=== PATIENT | male | born 1950 | race Hispanic/Latino ===

== ENCOUNTER → 2018-02-26 | Outpatient (CLI) | payer MEDICARE | END | disposition home or self-care (01) | LOC: SHCH 10:46 | PROVIDERS: ATTEND Internal Medicine Cardiovascular Disease | DX: I50.42 Chronic combined systolic (congestive) and diastolic (congestive) heart failure (principal) | CPT/HCPCS: 93306 ==

== ENCOUNTER → 2020-08-13 | Outpatient (CLI) | payer MEDICARE | END | disposition home or self-care (01) | LOC: SHCH 09:06 | PROVIDERS: ATTEND Internal Medicine Cardiovascular Disease | DX: I50.22 Chronic systolic (congestive) heart failure (principal) | CPT/HCPCS: 93306 ==

== ENCOUNTER → 2022-08-21 | Outpatient (CLI) | payer MEDICARE ==
[2022-08-21 12:29] LABS: POTASSIUM 4.1 mmol/L (3.5-5.1)
== END | disposition home or self-care (01) ==
LOC: LAB 08:59
PROVIDERS: ATTEND Internal Medicine Cardiovascular Disease
DX: I50.22 Chronic systolic (congestive) heart failure (principal)
CPT/HCPCS: 36415; 80048; 83880

== ENCOUNTER → 2022-10-22 | Outpatient (CLI) | payer MEDICARE ==
[2022-10-22 12:46] LABS: CREATININE 1.2 mg/dL (0.5-1.5); POTASSIUM 4.1 mmol/L (3.5-5.1)
== END | disposition home or self-care (01) ==
LOC: LAB 08:32
PROVIDERS: ATTEND Internal Medicine Cardiovascular Disease
DX: I50.22 Chronic systolic (congestive) heart failure (principal)
CPT/HCPCS: 36415; 80048; 83880

== ENCOUNTER → 2022-12-08 | Outpatient (CLI) | payer MEDICARE ==
[2022-12-08 13:13] LABS: CREATININE 1.4 mg/dL (0.5-1.5)
== END | disposition home or self-care (01) ==
LOC: LAB 08:08
PROVIDERS: ATTEND Internal Medicine Cardiovascular Disease
DX: I11.0 Hypertensive heart disease with heart failure (principal); I25.2 Old myocardial infarction; I50.42 Chronic combined systolic (congestive) and diastolic (congestive) heart failure
CPT/HCPCS: 36415; 80048; 83880

== ENCOUNTER → 2022-12-26 | Outpatient (CLI) | payer MEDICARE ==
[~2022-12-26] VITALS: Ht 168.9 cm; Wt 94.1 kg
[~2022-12-26] MED LIST: APIX5TAB PO; ATOR40TA71 PO; CEFAZOLIN SODIUM 2 GM VIAL IVPB SCH; EMPA10TA PO; FURO20TA4 PO; GLIM4TAB36 PO; METF-444 PO; METO-391 PO; SACU1TAB PO; SITA100T12 PO; SPIR25TA PO
[2022-12-26 10:04] LABS: BASOPHILS % (AUTO) 0.4 % (0.0-5.0); EOSINOPHILS % (AUTO) 1.1 % (0.0-8.0); HEMATOCRIT 42.8 % (42-54); LYMPHOCYTES % (AUTO) 18.8 % (21.0-51.0); MEAN CORPUSCULAR HEMOGLOBIN 32.2 pg (27.0-33.0); MEAN CORPUSCULAR HGB CONC 32.7 g/dL (32.0-36.0); MEAN CORPUSCULAR VOLUME 98.4 fL (79-99); MONOCYTES % (AUTO) 6.9 % (3.0-13.0); NEUTROPHILS % (AUTO) 72.3 % (40.0-77.0); PLATELET COUNT (AUTO) 125 K/uL (130-400); RED BLOOD CELL COUNT(AUTO) 4.35 MIL/uL (4.50-6.20); RED CELL DISTRIBUTION WIDTH 13.6 % (11.0-15.5); WHITE BLOOD COUNT (AUTO) 11.5 K/uL (4.8-10.8)
[2022-12-26 10:11] LABS: CREATININE 1.5 mg/dL (0.5-1.5); POTASSIUM 4.5 mmol/L (3.5-5.1)
[2022-12-26 10:12] LABS: INR 1.17 (0.85-1.15); PROTHROMBIN TIME 12.6 SEC (9.6-11.6)
[2022-12-26 10:13] LABS: PARTIAL THROMBOPLASTIN TIME 29.7 SEC (26.3-35.5)
[2022-12-29 08:55] VITALS: BP 97/64
== END | disposition home or self-care (01) ==
LOC: EDSTATUS 09:00 → DAH 10:00
PROVIDERS: ATTEND Internal Medicine Cardiovascular Disease
DX: Z01.810 Encounter for preprocedural cardiovascular examination (principal); I25.5 Ischemic cardiomyopathy; I50.22 Chronic systolic (congestive) heart failure; I44.7 Left bundle-branch block, unspecified; I48.91 Unspecified atrial fibrillation; Z79.01 Long term (current) use of anticoagulants; Z79.899 Other long term (current) drug therapy
CPT/HCPCS: 36415; 80048; 85025; 85610; 85730; 93005

== ENCOUNTER 2023-01-13 08:16 | Day surgery (SDC) | payer MEDICARE ==
[2023-01-09 13:56] LABS: BASOPHILS % (AUTO) 0.3 % (0.0-5.0); EOSINOPHILS % (AUTO) 1.2 % (0.0-8.0); HEMATOCRIT 42.7 % (42-54); LYMPHOCYTES % (AUTO) 19.3 % (21.0-51.0); MEAN CORPUSCULAR HEMOGLOBIN 31.9 pg (27.0-33.0); MEAN CORPUSCULAR HGB CONC 32.3 g/dL (32.0-36.0); MEAN CORPUSCULAR VOLUME 98.8 fL (79-99); MONOCYTES % (AUTO) 8.8 % (3.0-13.0); PLATELET COUNT (AUTO) 167 K/uL (130-400); RED BLOOD CELL COUNT(AUTO) 4.32 MIL/uL (4.50-6.20); RED CELL DISTRIBUTION WIDTH 13.8 % (11.0-15.5); WHITE BLOOD COUNT (AUTO) 10.5 K/uL (4.8-10.8)
[2023-01-09 14:12] LABS: CREATININE 1.4 mg/dL (0.5-1.5); INR 1.1 (0.85-1.15); POTASSIUM 4.7 mmol/L (3.5-5.1); PROTHROMBIN TIME 11.9 SEC (9.6-11.6)
[2023-01-09 14:13] LABS: PARTIAL THROMBOPLASTIN TIME 28.1 SEC (26.3-35.5)
[2023-01-09 15:38] VITALS: BP 97/60
[2023-01-13] VITALS (8 sets, daily range): BP systolic 95–107; BP diastolic 58–71
[~2023-01-13] VITALS: Ht 162.6 cm; Wt 94.9 kg
[~2023-01-13 08:16] MED LIST changes: +0.9% NACL 500ML IV.SOLN 500 ML IV SCH; +ASPI1TAB PO
[2023-01-13] MEDS ORDERED: MIDAZOLAM HCL 1 MG/ML 2ML VIAL ONE ×2 (14:16→15:03)
[2023-01-13] MEDS ORDERED: IODIXANOL 320 MG/ML 100 ML VIAL ONE (14:16)
[2023-01-13] MEDS ORDERED: MEPERIDINE-PF 25 MG/ML SYG ONE ×2 (14:16→15:03)
[2023-01-13] MEDS ORDERED: LIDOCAINE HCL 1% MDV 50ML VIAL ONE (14:17)
[2023-01-13] MEDS ORDERED: BUPIVACAINE/PF 0.25% 10ML VIAL IJ ONE (14:17)
[2023-01-13] MEDS ORDERED: CEFAZOLIN SODIUM 1 GM VIAL ONE (14:54)
[2023-01-13] MEDS ORDERED: ACETAMINOPHEN 500 MG TABLET PO PRN (16:30)
[2023-01-13] MEDS ORDERED: ACETAMINOPHEN WITH CODEINE 1 TAB TAB PO PRN (16:30)
[2023-01-13] MEDS ORDERED: TRAM50TA4 PO (16:32)
== END 2023-01-13 19:27 | disposition home or self-care (01) ==
LOC: DAH 08:16
PROVIDERS: ATTEND Internal Medicine Cardiovascular Disease
DX: I25.5 Ischemic cardiomyopathy (principal); I11.0 Hypertensive heart disease with heart failure; I50.42 Chronic combined systolic (congestive) and diastolic (congestive) heart failure; I25.10 Atherosclerotic heart disease of native coronary artery without angina pectoris; I48.91 Unspecified atrial fibrillation; G47.33 Obstructive sleep apnea (adult) (pediatric); K21.9 Gastro-esophageal reflux disease without esophagitis; I25.2 Old myocardial infarction; Z98.890 Other specified postprocedural states; Z82.49 Family history of ischemic heart disease and other diseases of the circulatory system; Z83.3 Family history of diabetes mellitus; Z95.1 Presence of aortocoronary bypass graft; Z79.899 Other long term (current) drug therapy; Z79.01 Long term (current) use of anticoagulants
CPT/HCPCS: 80048; 85025; 85610; 85730; 36415; 93005; 33225; 33249; 82948 ×4; 71045; A4223 ×3; C1769; C1882; C1900; C1896; C1895; J0690; J2250 ×2; J3490 ×2; J2175 ×2; Q9967; A4215; A4222; A4221; A4663; A4216; A4606; 99156; 99157

== ENCOUNTER 2023-01-21 06:06 | Observation (INO) | payer MEDICARE ==
[2023-01-20 15:11] VITALS: BP 96/51
[2023-01-20 15:27] LABS: BASOPHILS % (AUTO) 0.4 % (0.0-5.0); EOSINOPHILS % (AUTO) 1.3 % (0.0-8.0); HEMATOCRIT 37.9 % (42-54); LYMPHOCYTES % (AUTO) 19.8 % (21.0-51.0); MEAN CORPUSCULAR HEMOGLOBIN 32.3 pg (27.0-33.0); MEAN CORPUSCULAR VOLUME 97.9 fL (79-99); PLATELET COUNT (AUTO) 149 K/uL (130-400); RED BLOOD CELL COUNT(AUTO) 3.87 MIL/uL (4.50-6.20); RED CELL DISTRIBUTION WIDTH 14.3 % (11.0-15.5); WHITE BLOOD COUNT (AUTO) 11.1 K/uL (4.8-10.8)
[2023-01-20 15:34] LABS: CREATININE 1.6 mg/dL (0.5-1.5); POTASSIUM 4.9 mmol/L (3.5-5.1)
[2023-01-21] VITALS (12 sets, daily range): BP systolic 91–124; BP diastolic 55–74
[~2023-01-21] VITALS: Ht 162.6 cm; Wt 94.0 kg
[~2023-01-21 06:06] MED LIST changes: -0.9% NACL 500ML IV.SOLN 500 ML IV SCH; -CEFAZOLIN SODIUM 2 GM VIAL IVPB SCH
[2023-01-21] MEDS ORDERED: MIDAZOLAM HCL 1 MG/ML 2ML VIAL ONE (06:24)
[2023-01-21] MEDS ORDERED: FENTANYL CITRATE PF 50 MCG/1 ML 2ML VIAL ONE (06:25)
[2023-01-21] MEDS ORDERED: LIDOCAINE HCL 2% VISCOUS 15 ML UDCUP ONE (06:34)
[2023-01-21] MEDS ORDERED: AMIODARONE 150MG VIAL 150 MG in DEXTROSE 5%-WATER 100 ML IV SCH (10:00)
[2023-01-21] MEDS ORDERED: AMIODARONE 540 MG/D5W 300ML (0.5MG/MIN) IV SCH ×2 (10:00)
[2023-01-21] MEDS ORDERED: AMIODARONE 360MG/200ML D5W(1MG/MIN) IV SCH ×2 (10:00)
[2023-01-21] MEDS ORDERED: ACETAMINOPHEN 500 MG TABLET PO PRN (11:30)
[2023-01-21] MEDS ORDERED: FORMULA PO PRN (11:30)
[2023-01-21] MEDS ORDERED: GLUCAGON 1MG KIT 1 MG ML IM PRN (18:00)
[2023-01-21] MEDS ORDERED: DEXTROSE 50%-WATER 50 ML DISP.SYRIN IV PRN (18:00)
[2023-01-21] MEDS: METOPROLOL SUCCINATE 50 MG TAB.SR.24H PO SCH (20:43)
[2023-01-21] MEDS: SACUBITRIL/VALSARTAN 1 EACH TABLET PO SCH (20:44)
[2023-01-21] MEDS: APIXABAN 5 MG TABLET PO SCH (20:44)
[2023-01-21] MEDS: INSULIN HUMULIN R 100 UNIT/ML 3ML SQ SCH (20:44)
[2023-01-21] MEDS: GLIMEPIRIDE 2 MG TABLET PO SCH (20:44)
[2023-01-21] MEDS ORDERED: ATORVASTATIN 40 MG TABLET PO SCH (21:00)
[2023-01-22 03:56] VITALS: BP 104/69
[2023-01-22 03:57] LABS: BASOPHILS % (AUTO) 0.3 % (0.0-5.0); EOSINOPHILS % (AUTO) 0.9 % (0.0-8.0); HEMATOCRIT 39.4 % (42-54); LYMPHOCYTES % (AUTO) 23.3 % (21.0-51.0); MEAN CORPUSCULAR HEMOGLOBIN 32.4 pg (27.0-33.0); MEAN CORPUSCULAR HGB CONC 32.2 g/dL (32.0-36.0); MEAN CORPUSCULAR VOLUME 100.5 fL (79-99); NEUTROPHILS % (AUTO) 64.7 % (40.0-77.0); PLATELET COUNT (AUTO) 141 K/uL (130-400); RED BLOOD CELL COUNT(AUTO) 3.92 MIL/uL (4.50-6.20); RED CELL DISTRIBUTION WIDTH 14.4 % (11.0-15.5); WHITE BLOOD COUNT (AUTO) 12.8 K/uL (4.8-10.8)
[2023-01-22 04:15] LABS: CREATININE 1.6 mg/dL (0.5-1.5); POTASSIUM 4.9 mmol/L (3.5-5.1)
[2023-01-22] MEDS: INSULIN HUMULIN R 100 UNIT/ML 3ML SQ SCH ×2 (05:17→11:13)
[2023-01-22] MEDS: METOPROLOL SUCCINATE 50 MG TAB.SR.24H PO SCH (05:24)
[2023-01-22 06:47] VITALS: BP 114/72
[2023-01-22] MEDS: METFORMIN HCL 500 MG TABLET PO SCH ×2 (08:00→09:26)
[2023-01-22] MEDS ORDERED: LIDOCAINE PF 100MG/5ML (2%) SYRINGE 5ML ONE (08:10)
[2023-01-22] MEDS ORDERED: NOREPINEPHRINE BITARTRATE 1 MG/1 ML ML IV ONE (08:10)
[2023-01-22] MEDS ORDERED: PROPOFOL 10 MG/ML 20ML VIAL IV ONE (08:11)
[2023-01-22] MEDS: GLIMEPIRIDE 2 MG TABLET PO SCH (08:32)
[2023-01-22] MEDS: EMPAGLIFLOZIN 10MG TABLET PO SCH ×2 (08:32→09:00)
[2023-01-22] MEDS: LINAGLIPTIN 5 MG TABLET PO SCH ×2 (08:32→09:00)
[2023-01-22] MEDS ORDERED: FUROSEMIDE 20 MG TABLET PO SCH (09:00)
[2023-01-22] MEDS ORDERED: SPIRONOLACTONE 25 MG TAB PO SCH (09:00)
[2023-01-22] MEDS ORDERED: AMIO200T68 PO (09:13)
[2023-01-22] MEDS: SACUBITRIL/VALSARTAN 1 EACH TABLET PO SCH (09:27)
[2023-01-22] MEDS: APIXABAN 5 MG TABLET PO SCH (09:27)
[2023-01-22] MEDS ORDERED: AMIODARONE 200 MG TABLET PO SCH (09:30)
[2023-01-22 10:50] VITALS: BP 94/67
[2023-01-22 13:00] VITALS: BP 102/70
== END 2023-01-22 13:15 | disposition home or self-care (01) ==
LOC: DAH 06:06 → INTOOBSV 06:07 → DAHIP 06:07 → DAH 06:07 → 2AH 11:54 → EDSTATUS 13:00
PROVIDERS: ADMIT Internal Medicine Cardiovascular Disease; ATTEND Internal Medicine Cardiovascular Disease
DX: I48.19 Other persistent atrial fibrillation (principal); I10 Essential (primary) hypertension; I25.10 Atherosclerotic heart disease of native coronary artery without angina pectoris; G47.33 Obstructive sleep apnea (adult) (pediatric); G43.909 Migraine, unspecified, not intractable, without status migrainosus; E11.9 Type 2 diabetes mellitus without complications; Z79.899 Other long term (current) drug therapy
CPT/HCPCS: 80048 ×2; 85025 ×2; 36415 ×2; 93005; 96365; 96366 ×2; 82948 ×6; 93312; 92960; G0378 ×25; J3010; J2250; J7060 ×3; J0282 ×3; A4615; A4215; A4223 ×3; A4222; A4221; A4663; A4216; A4606; J3490; J2001; J2704; 96374

== ENCOUNTER → 2023-07-21 | Outpatient (CLI) | payer MEDICARE ==
[~2023-07-21] MED LIST changes: +AMIO200T68 PO
[2023-07-21 11:59] LABS: BASOPHILS # (AUTO) 0.07 K/uL (0.00-0.20); BASOPHILS % (AUTO) 0.6 % (0.0-5.0); EOSINOPHILS # (AUTO) 0.18 K/uL (0.00-0.70); EOSINOPHILS % (AUTO) 1.5 % (0.0-8.0); HEMATOCRIT 45.1 % (42-54); IMMATURE GRANULOCYTE ABSOLUTE 0.05 K/uL (0-1); LYMPHOCYTES # (AUTO) 2.7 K/uL (1.0-4.8); LYMPHOCYTES % (AUTO) 22.9 % (21.0-51.0); MEAN CORPUSCULAR HEMOGLOBIN 32.7 pg (27.0-33.0); MEAN CORPUSCULAR HGB CONC 31.7 g/dL (32.0-36.0); MEAN CORPUSCULAR VOLUME 103.2 fL (79-99); MONOCYTES % (AUTO) 8.7 % (3.0-13.0); NEUTROPHILS # (AUTO) 7.7 K/uL (1.8-7.7); NEUTROPHILS % (AUTO) 65.9 % (40.0-77.0); PLATELET COUNT (AUTO) 158 K/uL (130-400); RED BLOOD CELL COUNT(AUTO) 4.37 MIL/uL (4.50-6.20); WHITE BLOOD COUNT (AUTO) 11.7 K/uL (4.8-10.8)
[2023-07-21 12:25] LABS: ALBUMIN 3.8 g/dL (3.5-5.0); BILIRUBIN,TOTAL 0.6 mg/dL (0.2-1.0); CREATININE 1.7 mg/dL (0.5-1.5); POTASSIUM 5.1 mmol/L (3.5-5.1); TOTAL PROTEIN, SERUM 7.9 g/dL (6.0-8.3)
== END | disposition home or self-care (01) ==
LOC: LAB 08:34
PROVIDERS: ATTEND Internal Medicine Cardiovascular Disease
DX: I50.22 Chronic systolic (congestive) heart failure (principal); I48.91 Unspecified atrial fibrillation
CPT/HCPCS: 36415; 80053; 80061; 83880; 85025

== ENCOUNTER → 2023-10-02 | Outpatient (CLI) | payer MEDICARE ==
[~2023-10-02] MED LIST changes: +ASPI-1005 PO; -ASPI1TAB PO; -FURO20TA4 PO; +FURO40TA7 PO; +MECL-226 PO; -METO-391 PO; +METO100T14 PO; +TYLENOL ARTHRITIS PO
[2023-10-02 13:01] LABS: CREATININE 1.7 mg/dL (0.5-1.5)
== END | disposition home or self-care (01) ==
LOC: LAB 08:25
PROVIDERS: ATTEND Internal Medicine Cardiovascular Disease
DX: I48.0 Paroxysmal atrial fibrillation (principal); I50.22 Chronic systolic (congestive) heart failure
CPT/HCPCS: 36415; 80048; 83880

== ENCOUNTER → 2023-10-22 | Outpatient (CLI) | payer MEDICARE ==
[2023-10-22 12:56] LABS: CREATININE 1.9 mg/dL (0.5-1.5); POTASSIUM 4.2 mmol/L (3.5-5.1)
== END | disposition home or self-care (01) ==
LOC: LAB 08:27
PROVIDERS: ATTEND Internal Medicine Cardiovascular Disease
DX: I50.42 Chronic combined systolic (congestive) and diastolic (congestive) heart failure (principal); I48.0 Paroxysmal atrial fibrillation
CPT/HCPCS: 36415; 80048; 83880

== ENCOUNTER 2024-01-14 20:05 | Emergency (ER) | payer MEDICARE ==
[~2024-01-14] VITALS: Ht 162.6 cm; Wt 98.9 kg
[2024-01-15 02:29] LABS: BASOPHILS # (AUTO) 0.04 K/uL (0.00-0.20); BASOPHILS % (AUTO) 0.3 % (0.0-5.0); EOSINOPHILS # (AUTO) 0.05 K/uL (0.00-0.70); EOSINOPHILS % (AUTO) 0.3 % (0.0-8.0); HEMATOCRIT 37.8 % (42-54); IMMATURE GRANULOCYTE ABSOLUTE 0.07 K/uL (0-1); LYMPHOCYTES # (AUTO) 2.3 K/uL (1.0-4.8); LYMPHOCYTES % (AUTO) 14.7 % (21.0-51.0); MEAN CORPUSCULAR HEMOGLOBIN 33.7 pg (27.0-33.0); MEAN CORPUSCULAR HGB CONC 34.1 g/dL (32.0-36.0); MEAN CORPUSCULAR VOLUME 98.7 fL (79-99); MONOCYTES # (AUTO) 1.5 K/uL (0.1-1.0); MONOCYTES % (AUTO) 9.4 % (3.0-13.0); NEUTROPHILS # (AUTO) 11.9 K/uL (1.8-7.7); NEUTROPHILS % (AUTO) 74.9 % (40.0-77.0); PLATELET COUNT (AUTO) 168 K/uL (130-400); RED BLOOD CELL COUNT(AUTO) 3.83 MIL/uL (4.50-6.20); RED CELL DISTRIBUTION WIDTH 14.5 % (11.0-15.5); WHITE BLOOD COUNT (AUTO) 15.9 K/uL (4.8-10.8)
[2024-01-15 02:41] LABS: POTASSIUM 4.1 mmol/L (3.5-5.1)
[2024-01-15 02:47] LABS: ALBUMIN 3.7 g/dL (3.5-5.0); BILIRUBIN,TOTAL 0.8 mg/dL (0.2-1.0); TOTAL PROTEIN, SERUM 7.3 g/dL (6.0-8.3)
[2024-01-15 02:51] LABS: B-TYPE NATRIURETIC PEPTIDE 1160 pg/mL (0-100)
[2024-01-15 03:21] LABS: ADD UA MICROSCOPIC NO; APPEARANCE,URINE CLEAR (CLEAR); BILIRUBIN,URINE NEGATIVE (NEGATIVE); COLOR,URINE COLORLESS (YELLOW); GLUCOSE, URINE (UA) NEGATIVE (NEGATIVE); KETONES,URINE NEGATIVE (NEGATIVE); LEUKOCYTE ESTERASE ,URINE NEGATIVE Leu/uL (NEGATIVE); NITRATE,URINE NEGATIVE (NEGATIVE); OCCULT BLOOD,URINE NEGATIVE (NEGATIVE); PROTEIN,URINE NEGATIVE (NEGATIVE); UROBILINOGEN,URINE 0.2 mg/dL (0.2-1.0)
[2024-01-15] MEDS ORDERED: FUROSEMIDE 100MG VIAL IVP ONE (04:00)
[2024-01-15 04:06] VITALS: BP 102/64; PULSE 84; RESP 17; O2SAT 98
== END 2024-01-15 04:13 | disposition home or self-care (01) ==
LOC: EDH 20:05
DX: I11.0 Hypertensive heart disease with heart failure (principal); I50.9 Heart failure, unspecified; E11.9 Type 2 diabetes mellitus without complications; E78.00 Pure hypercholesterolemia, unspecified; Z79.01 Long term (current) use of anticoagulants; Z79.82 Long term (current) use of aspirin; Z79.84 Long term (current) use of oral hypoglycemic drugs; Z79.899 Other long term (current) drug therapy; Z95.810 Presence of automatic (implantable) cardiac defibrillator
CPT/HCPCS: 36415; 71045; 80053; 81003; 82550; 83880; 84484; 85025; 93005

== ENCOUNTER → 2024-02-10 | Outpatient (CLI) | payer MEDICARE ==
[2024-02-10 13:19] LABS: CREATININE 2.1 mg/dL (0.5-1.3); MAGNESIUM 2.2 mg/dL (1.80-2.40); POTASSIUM 4.8 mmol/L (3.5-5.1)
== END | disposition home or self-care (01) ==
LOC: LAB 08:27
PROVIDERS: ATTEND Internal Medicine Cardiovascular Disease
DX: I50.41 Acute combined systolic (congestive) and diastolic (congestive) heart failure (principal); R06.00 Dyspnea, unspecified
CPT/HCPCS: 36415; 80048; 83735; 83880

== ENCOUNTER 2024-05-02 11:27 | Day surgery (SDC) | payer MEDICARE ==
[2024-04-28 12:28] LABS: BASOPHILS # (AUTO) 0.05 K/uL (0.00-0.20); BASOPHILS % (AUTO) 0.5 % (0.0-5.0); EOSINOPHILS # (AUTO) 0.08 K/uL (0.00-0.70); EOSINOPHILS % (AUTO) 0.7 % (0.0-8.0); HEMATOCRIT 43.6 % (42-54); LYMPHOCYTES % (AUTO) 18.8 % (21.0-51.0); MEAN CORPUSCULAR HEMOGLOBIN 33.9 pg (27.0-33.0); MEAN CORPUSCULAR VOLUME 102.6 fL (79-99); MONOCYTES # (AUTO) 0.8 K/uL (0.1-1.0); MONOCYTES % (AUTO) 7.7 % (3.0-13.0); NEUTROPHILS # (AUTO) 7.8 K/uL (1.8-7.7); NEUTROPHILS % (AUTO) 71.4 % (40.0-77.0); PLATELET COUNT (AUTO) 164 K/uL (130-400); RED BLOOD CELL COUNT(AUTO) 4.25 MIL/uL (4.50-6.20); RED CELL DISTRIBUTION WIDTH 13.8 % (11.0-15.5); WHITE BLOOD COUNT (AUTO) 10.9 K/uL (4.8-10.8)
[2024-04-28 12:40] LABS: INR 1.03 (0.85-1.15); PROTHROMBIN TIME 12.1 SEC (9.6-11.6)
[2024-04-28 12:41] LABS: PARTIAL THROMBOPLASTIN TIME 29.9 SEC (26.3-35.5)
[2024-04-28 12:52] LABS: B-TYPE NATRIURETIC PEPTIDE 1310 pg/mL (0-100)
[2024-04-28 12:58] LABS: CREATININE 2.2 mg/dL (0.5-1.3); POTASSIUM 4.6 mmol/L (3.5-5.1)
[2024-04-28 13:28] VITALS: BP 98/59; PULSE 79; RESP 18
[2024-04-28 13:36] LABS: APPEARANCE,URINE CLEAR (CLEAR); BILIRUBIN,URINE NEGATIVE (NEGATIVE); COLOR,URINE LIGHT-YELLOW (YELLOW); GLUCOSE, URINE (UA) 300 mg/dL (NEGATIVE); KETONES,URINE NEGATIVE (NEGATIVE); LEUKOCYTE ESTERASE ,URINE NEGATIVE Leu/uL (NEGATIVE); NITRATE,URINE NEGATIVE (NEGATIVE); OCCULT BLOOD,URINE NEGATIVE (NEGATIVE); PROTEIN,URINE NEGATIVE (NEGATIVE); UROBILINOGEN,URINE 0.2 mg/dL (0.2-1.0)
[2024-04-28 13:44] LABS: ADD UA MICROSCOPIC YES
[2024-04-28 13:48] LABS: HYALINE CASTS, URINE 26-50 /LPF (0-1 /LPF); MUCUS,URINE RARE LPF (None Seen); OTHER CASTS, URINE 2 /LPF (None Seen); RBC,URINE 0-1 /HPF (0-1); SQUAMOUS EPITHELIAL CELL,UR RARE /HPF (0-2)
[~2024-05-02] VITALS: Ht 162.6 cm; Wt 92.9 kg
[2024-05-02] VITALS (7 sets, daily range): BP systolic 98–122; BP diastolic 50–73; PULSE 67–91; RESP 13–20
[~2024-05-02 11:27] MED LIST changes: -AMIO200T68 PO; -ASPI-1005 PO; +DAPA10TA PO; -EMPA10TA PO; -FURO40TA7 PO; -MECL-226 PO; -METF-444 PO; +METO-409 PO; -METO100T14 PO; +TORS100T16 PO; +excedrin PO
[2024-05-02] MEDS: 0.9%NACL 1000ML 1,000 ML IV ONE (12:13)
[2024-05-02] MEDS ORDERED: LIDOCAINE HCL 400MG/20ML VIAL ONE (17:37)
[2024-05-02] MEDS ORDERED: SODIUM BICARB 50MEQ 50ML VIAL 50 ML ONE (17:37)
[2024-05-02] MEDS ORDERED: NITROGLYCERIN 50MG VIAL ONE (17:38)
[2024-05-02] MEDS ORDERED: MIDAZOLAM HCL 1 MG/ML 2ML VIAL ONE (18:03)
[2024-05-02] MEDS ORDERED: FENTANYL CITRATE PF 50 MCG/1 ML 2ML VIAL ONE (18:03)
[2024-05-02] MEDS ORDERED: METO2.5T2 PO (19:04)
== END 2024-05-02 21:00 | disposition home or self-care (01) ==
LOC: DAH 11:27
PROVIDERS: ATTEND Internal Medicine Cardiovascular Disease
DX: I11.0 Hypertensive heart disease with heart failure (principal); I50.43 Acute on chronic combined systolic (congestive) and diastolic (congestive) heart failure; K21.9 Gastro-esophageal reflux disease without esophagitis; G47.30 Sleep apnea, unspecified; Z98.890 Other specified postprocedural states; Z82.49 Family history of ischemic heart disease and other diseases of the circulatory system; Z83.3 Family history of diabetes mellitus; Z79.899 Other long term (current) drug therapy; Z79.01 Long term (current) use of anticoagulants
CPT/HCPCS: 80048; 83880; 85025; 85610; 85730; 81001; 36415; 71045; 93005; 93451; 82948 ×2; C1894 ×2; J3490 ×2; J7030; J1644; A4215; A4222; A4221; A4663; A4216; A4606; A4223 ×3; J2250; J3010

== ENCOUNTER → 2024-06-06 | Outpatient (CLI) | payer MEDICARE ==
[~2024-06-06] MED LIST changes: +METO2.5T2 PO
[2024-06-06 12:39] LABS: CREATININE 2.7 mg/dL (0.5-1.3); POTASSIUM 3.7 mmol/L (3.5-5.1)
== END | disposition home or self-care (01) ==
LOC: LAB 08:11
PROVIDERS: ATTEND Internal Medicine Cardiovascular Disease
DX: I50.42 Chronic combined systolic (congestive) and diastolic (congestive) heart failure (principal)
CPT/HCPCS: 36415; 80048; 83880

== ENCOUNTER → 2024-07-19 | Outpatient (CLI) | payer MEDICARE ==
[2024-07-19 12:08] LABS: CREATININE 2.5 mg/dL (0.5-1.3); MAGNESIUM 1.5 mg/dL (1.80-2.40); POTASSIUM 4.3 mmol/L (3.5-5.1)
== END | disposition home or self-care (01) ==
LOC: LAB 08:48
PROVIDERS: ATTEND Internal Medicine Cardiovascular Disease
DX: I50.22 Chronic systolic (congestive) heart failure (principal)
CPT/HCPCS: 36415; 80048; 83735

== ENCOUNTER → 2025-02-28 | Outpatient (CLI) | payer MEDICARE ==
[2025-02-28 12:34] LABS: ALBUMIN 4.3 g/dL (3.5-5.0); BILIRUBIN,TOTAL 0.5 mg/dL (0.2-1.0); CREATININE 2.5 mg/dL (0.5-1.3); POTASSIUM 3.8 mmol/L (3.5-5.1); TOTAL PROTEIN, SERUM 8.6 g/dL (6.0-8.3)
== END | disposition home or self-care (01) ==
LOC: LAB 08:59
PROVIDERS: ATTEND Internal Medicine Cardiovascular Disease
DX: I50.22 Chronic systolic (congestive) heart failure (principal)
CPT/HCPCS: 36415; 80053; 83880

== ENCOUNTER → 2025-03-21 | Outpatient (CLI) | payer MEDICARE ==
[2025-03-21 12:30] LABS: POTASSIUM 4.2 mmol/L (3.5-5.1)
== END | disposition home or self-care (01) ==
LOC: LAB 08:43
PROVIDERS: ATTEND Internal Medicine Cardiovascular Disease
DX: I50.22 Chronic systolic (congestive) heart failure (principal)
CPT/HCPCS: 36415; 80048; 83880